=== PATIENT | female | born 1970 | race Hispanic/Latino ===

== ENCOUNTER 2018-01-09 22:29 | Emergency (ER) | payer SELFPAY ==
[2018-01-09] MEDS ORDERED: FAMOTIDINE 20MG TAB 20 MG TAB ONE (22:31)
[2018-01-09] MEDS ORDERED: DiphenhydrAMINE HCL 50 MG/ML VIAL ONE (22:31)
[2018-01-09] MEDS ORDERED: METHYLPREDNISOLONE SOD SUCC 125MG/2ML VIAL ONE (22:31)
[2018-01-09] MEDS ORDERED: IPRATROPIUM/ALBUTEROL SULFATE 3 ML SOLUTION IH ONE (22:42)
[2018-01-09] MEDS ORDERED: SODIUM CHLORIDE 0.9% 1000ML 1,000 ML IV ONE (22:45)
== END 2018-01-10 00:05 | disposition home or self-care (01) ==
LOC: EDH 22:29
DX: L50.0 Allergic urticaria (principal); E07.9 Disorder of thyroid, unspecified
CPT/HCPCS: 94640; 96372 ×2; 99284; J1200; J2930; J7030